=== PATIENT | male | born 1975 | race Caucasian/White ===

== ENCOUNTER 2018-01-04 08:33 | Emergency (ER) | payer OTHER, MEDICAID ==
[~2018-01-04] VITALS: Ht 170.2 cm; Wt 72.6 kg
[~2018-01-04 08:33] MED LIST: DIVA500E1 PO; LORA-478 PO; OLAN10TA PO
--- NOTE | 2018-01-04 08:33 | NUR ---
Patient BIB [facility] for pre-booking medical screening exam, transferred to bed 2. RN evaluating patient at bedside.
[2018-01-04 08:35] VITALS: BP 141/77
--- NOTE | 2018-01-04 08:41 | NUR ---
43 YO M MARISOL ZAVALA FOR PRE-BOOK MEDICAL EXAM. PT REPORTS HX SEIZURES. DENIES ETHOH/SMOKING TODAY, BUT DRANK LAST NIGHT. DENIES PAIN. DENIES N/V/D.PD REPORTS HE JUST WENT TO GO TALK TO HIM AND SAW HE HAS WARRANTS OUT FOR HIS ARREST. PT HAS NO HEALTH COMPLAINTS AT THIS TIME. PT A&O X4. GCS 15. CMS INTACT. RR EVEN AND UNLABORED. LUNG SOUNDS CLEAR. ABD SOFT, NON-TENDER. NO TRAUMA/INJURIES NOTED. ER SECHRIST NOTIFIED. PT NEEDS MET. SAFETY PRECAUTIONS IN PLACE. WILL CONTINUE TO MONITOR.
[2018-01-04 09:04] VITALS: BP 141/77
--- NOTE | 2018-01-04 09:05 | NUR ---
Patient discharged with v/s stable. Written and verbal after care instructions given and explained. Patient verbalized understanding. Police with in custody. All questions addressed prior to discharge. Advised to follow up with PMD.
== END 2018-01-04 09:04 ==
LOC: MED 08:33
DX: Z02.89 Encounter for other administrative examinations (principal); G40.909 Epilepsy, unspecified, not intractable, without status epilepticus; Z79.899 Other long term (current) drug therapy
CPT/HCPCS: 99283

== ENCOUNTER 2019-05-09 00:36 | Emergency (ER) | payer OTHER, MEDICAID ==
[~2019-05-09] VITALS: Ht 165.1 cm; Wt 68.0 kg
[2019-05-09 00:36] VITALS: BP 118/80
--- NOTE | 2019-05-09 00:36 | NUR ---
BIB EMS. PT IN [facility] WITH VSS. ON BED DELAY.
--- NOTE | 2019-05-09 01:04 | NUR ---
PT [facility]. TAKEN TO BED 5
--- NOTE | 2019-05-09 01:25 | NUR ---
PT BIBA PER EMS PT WAS FOUND SLEEPING ON SIDEWALK AND NOT RESPONSIVE. ON ARRIVAL PT IS SLEEPING , MOANS TO PAINFUL STIMULI AND WITHDRAWS. PT RR EVEN AND UNLABORED, NO SIGNS OF RR DISTRESS, 02 SAT AT 95% ON RA. NO SIGNS OF TRAUMA. PT LAYING IN BED, IN HOSPITAL GOWN, SIDE RAILS UP X2.
--- NOTE | 2019-05-09 01:42 | NUR ---
Dr. Benitez examining patient.
[2019-05-09] MEDS: NACL 0.9% 1,000 ML IV ONE (02:01)
--- NOTE | 2019-05-09 04:38 | NUR ---
PT ABLE TO RESPOND TO VERBAL STIMULI. UNABLE TO PROVIDE ANY VIABLE INFORMATION ABOUT WELL BEING. PRESENTS LETHARGIC WITH MUMBLED SPEECH. PT VSS. WILL CONTINUE TO MONITOR.
[2019-05-09 05:40] LABS: BASOPHILS % (AUTO) 0.6 % (0.0-2.0); EOSINOPHILS # (AUTO) 0.1 K/uL (0-0.4); EOSINOPHILS % (AUTO) 1.1 % (0.0-4.0); HEMATOCRIT 36.7 % (36-52); HEMOGLOBIN 12.3 g/dL (12.0-18.0); LYMPHOCYTES # (AUTO) 0.7 K/uL (2.0-11.5); LYMPHOCYTES % (AUTO) 10.3 % (20.5-51.1); MEAN CORPUSCULAR HEMOGLOBIN 29 pg (27-31); MEAN CORPUSCULAR HGB CONC 33 g/dL (33-37); MEAN CORPUSCULAR VOLUME 87.7 fL (80-94); MONOCYTES # (AUTO) 0.5 K/uL (0.8-1.0); MONOCYTES % (AUTO) 6.5 % (1.7-9.3); NEUTROPHILS # (AUTO) 5.9 K/uL (1.8-7.7); NEUTROPHILS % (AUTO) 81.5 % (42.2-75.2); PLATELET COUNT (AUTO) 319 K/uL (140-450); RED BLOOD CELL COUNT(AUTO) 4.19 MIL/uL (4.20-6.10); RED CELL DISTRIBUTION WIDTH 14.4 % (11.6-13.7); WHITE BLOOD COUNT (AUTO) 7.2 K/uL (4.8-10.8)
[2019-05-09 05:48] LABS: ANION GAP 11.5 (8-16); CARBON DIOXIDE 27.5 mmol/L (21-32); CHLORIDE 105 mmol/L (98-107); CREATININE 0.7 mg/dL (0.7-1.3); GFR ARICAN-AMERICAN 152 mL/min (>90); GLUCOSE 92 mg/dL (74-106); SODIUM SERUM 140 mmol/L (136-145); UREA NITROGEN, BLOOD 19 mg/dL (7-18)
[2019-05-09 05:56] LABS: ALBUMIN 3.3 g/dL (3.4-5.0); ASPARTATE AMINOTRANSFERASE 14 U/L (15-37); SALICYLATE 3.6 mg/dL (2.8-20.0); TOTAL BILIRUBIN 0.3 mg/dL (0.0-1.0)
[2019-05-09 05:57] LABS: ACETAMINOPHEN < 0.5 ug/ml (10-30)
--- NOTE | 2019-05-09 07:05 | NUR ---
WOKE PATIENT UP, PT ABLE TO STATE NAME AND DATE OF . PT PASSES ROAD TEST. WALKS TO RESTROOM WITH STEADY GAIT. [id number].
[2019-05-09 07:30] VITALS: BP 116/80
--- NOTE | 2019-05-09 07:30 | NUR ---
Patient discharged with v/s stable. Written and verbal after care instructions given and explained. Patient verbalized understanding. Ambulatory with steady gait. All questions addressed prior to discharge. PT GIVEN HOMELESS RESOURCE PACKET, HAS SIGNED WAIVER, AND GIVEN HYGIENE AND FOOD PACKET.
== END 2019-05-09 07:30 | disposition home or self-care (01) ==
LOC: EDUNIT# 00:36 → MED 00:36 → EDBD 00:36 → MED 07:30
DX: R40.0 Somnolence (principal)
CPT/HCPCS: 36415; 70450; 71045; 80053; 82550; 84484; 85025; 93005; 99284; G0480; G0482; J7030; Q0092

== ENCOUNTER 2019-08-27 15:08 | Emergency (ER) | payer OTHER, MEDICAID ==
[~2019-08-27] VITALS: Ht 165.1 cm; Wt 68.0 kg
[2019-08-27 15:20] VITALS: BP 121/78
--- NOTE | 2019-08-27 15:20 | NUR ---
BROUGHT IN BY ENDER ZAVALA FOR PREBOOK.
--- NOTE | 2019-08-27 15:30 | NUR ---
PT [facility]. PT ADMITS TO METH USE. MEDHX:PSYCH
[2019-08-27 15:52] VITALS: BP 121/78
--- NOTE | 2019-08-27 15:52 | NUR ---
PATIENT BIB [place] [employer]. PATIENT EXAMINED BY DR. MARTINEZ. PATIENT MEDICALLY CLEARED AND RELEASED IN CUSTODY IN STABLE CONDITION. ORIGINAL PRE-BOOK FORM GIVEN TO OFFICER ROHAN.
== END 2019-08-27 15:52 ==
LOC: MED 15:08
DX: Z02.89 Encounter for other administrative examinations (principal); F20.0 Paranoid schizophrenia; Z86.69 Personal history of other diseases of the nervous system and sense organs; Z79.899 Other long term (current) drug therapy; Z88.8 Allergy status to other drugs, medicaments and biological substances
CPT/HCPCS: 99283